=== PATIENT | female | born 1990 | race Caucasian/White ===

== ENCOUNTER 2019-03-17 23:29 | Inpatient (IN) | payer BC ==
[2019-03-18] MEDS: LACTATED RINGERS 1,000 ML IV SCH ×4 (00:02→03:06)
[2019-03-18] MEDS ORDERED: TERBUTALINE 1 MG/ML VIAL SQ PRN (01:44)
[2019-03-18] MEDS ORDERED: METHYLERGONOVINE 0.2 MG/ML 1 ML AMP IM PRN (01:44)
[2019-03-18] MEDS ORDERED: OXYTOCIN 10 UNIT/ML 1 ML VIAL IM PRN (01:44)
[2019-03-18] MEDS ORDERED: CARBOPROST TROMETHAMINE 250 MCG/ML 1 ML AMP IM PRN (01:44)
[2019-03-18] MEDS ORDERED: LIDOCAINE 0.5% (PF) 5 MG/ML (50 ML SDV) SQ PRN (01:44)
[2019-03-18 01:51] VITALS: BMI 30.4
[2019-03-18 02:19] LABS: Basophils % (A) 0 %; Eosinophils # (A) 0.1 k/uL (0-0.7); Eosinophils % (A) 1 %; HCT 39.2 % (34.0-46.0); HGB 12.8 gm/dL (11.4-16.0); Lymphocytes # (A) 1.9 k/uL (1.0-4.8); Lymphocytes % (A) 15 %; MCH 29.8 pg (25.0-35.0); MCHC 32.8 g/dL (31.0-37.0); Mean Platelet Volume 9.1; Monocytes # (A) 0.7 k/uL (0-1.0); Monocytes % (A) 5 %; Neutrophils # (A) 9.7 k/uL (1.3-7.7); Neutrophils % (A) 78 %; Platelet Count 157 k/uL (150-450); RBC 4.31 m/uL (3.80-5.40); RDW 13.1 % (11.5-15.5); WBC 12.5 k/uL (3.8-10.6)
[2019-03-18] MEDS ORDERED: SODIUM CHLORIDE 0.9% 100 ML BAG ONE (02:31)
[2019-03-18] MEDS ORDERED: ROPIVACAINE 5MG/ML 20ML VIAL ONE (02:31)
[2019-03-18] MEDS ORDERED: fentaNYL (PF) 50 MCG/ML 5 ML AMP ONE (02:31)
--- NOTE | 2019-03-18 05:25 | P.HPOB ---
History of Present Illness H&P Date: 03/18/19 Chief Complaint: Contractions This is a 28-year-old 1 para 0 woman with an estimated due date of 03/25/2019 based on LMP consistent with second trimester ultrasound. She presents at 39-0/7 weeks' gestation with regular painful contractions. She denies leakage of fluids or vaginal bleeding. She has had an uncomplicated . Upon initial evaluation in labor and delivery triage she is 3 cm dilated and does progress during observation time to 4 cm dilated in the setting of regular painful contractions. She is therefore admitted. Laboratory data: Blood type O positive, antibody screen negative, rubella immune, VDRL nonreactive, hepatitis B surface antigen negative, gonorrhea and clinic cultures negative, HIV negative, glucose tolerance testing within normal limits, group B strep negative. Review of Systems All systems: negative Past Medical History Past Medical History: No Reported History History of Any Multi-Drug Resistant Organisms: None Reported Past Surgical History: No Surgical Hx Reported Past Anesthesia/Blood Transfusion Reactions: No Reported Reaction Smoking Status: Never smoker - Past Family History Father Family Medical History: No Reported History Medications and Allergies Home Medications Medication Instructions Recorded Confirmed Type Pnv No.95/Ferrous Fum/Folic AC 1 each PO DAILY 03/17/19 03/17/19 History [ Multivitamin Tablet] Allergies Allergy/AdvReac Type Severity Reaction Status Date / Time No Known Allergies Allergy Verified 03/17/19 23:55 Exam Intake and Output 03/17/19 03/17/19 03/18/19 14:59 22:59 06:59 Other: Weight 98.883 kg Upon my initial evaluation patient is resting comfortably in bed with a epidural anesthetic. heart tones are category 1 by external monitoring. She is sonny every 2-4 minutes spontaneously. On pelvic examination the cervix is completely dilated with the vertex in the 0 station. Results Result Diagrams: 03/18/19 01:45 Abnormal Lab Results - Last 24 Hours (Table) 03/18/19 Range/Units 01:45 WBC 12.5 H (3.8-10.6) k/uL Neutrophils # 9.7 H (1.3-7.7) k/uL Assessment and Plan (1) 39 weeks gestation of Current Visit: Yes Status: Acute Code(s): Z3A.39 - 39 WEEKS GESTATION OF SNOMED Code(s): 12442566 (2) Spontaneous onset of labor Current Visit: Yes Status: Acute Code(s): XOG5018 - SNOMED Code(s): 40391032 Plan: 28-year-old 1 para 0 woman at 39 weeks gestation in spontaneous active labor. status currently reassuring. She is group B strep negative and Rh+. Anticipate normal spontaneous vaginal delivery.
[2019-03-18] MEDS ORDERED: BENZOCAINE/MENTHOL SPRAY 1 GM/SPRAY AEROSOL TOPICAL PRN (07:09)
[2019-03-18] MEDS ORDERED: HYDROcodone/APAP 5-325MG 1 EACH TAB PO PRN (07:09)
[2019-03-18] MEDS ORDERED: ZOLPIDEM 5 MG TAB PO PRN (07:09)
[2019-03-18] MEDS ORDERED: LANOLIN CREAM 5 GM TUBE TOPICAL PRN (07:09)
[2019-03-18] MEDS ORDERED: diphenhydrAMINE 50 MG/ML 1 ML VIAL IVP PRN ×2 (07:09)
[2019-03-18] MEDS ORDERED: SIMETHICONE 80 MG CHEWABLE PO PRN (07:09)
[2019-03-18] MEDS ORDERED: diphenhydrAMINE 25 MG CAP PO PRN (07:09)
[2019-03-18] MEDS ORDERED: WITCH HAZEL 1 EACH MED..PAD TOPICAL PRN (07:09)
[2019-03-18] MEDS ORDERED: HYDROCORTISONE 2.5% RECTAL CREAM 30 GM TUBE RECTAL PRN (07:09)
[2019-03-18] MEDS ORDERED: ACETAMINOPHEN TAB 325 MG TAB PO PRN (07:09)
[2019-03-18] MEDS ORDERED: diphenhydrAMINE 50 MG CAP PO PRN (07:09)
--- NOTE | 2019-03-18 07:09 | P.PROBDLV ---
Vaginal Delivery Note - . Vaginal Delivery Note: Findings: Female in the vertex right occiput anterior position with nuchal cord 1. Apgars of 8 at 1 minute and 9 at 5 minutes, weight 7 lbs. 2 oz., 3225 g. Bilateral deep sulcus tears with right labial and vulvar shearing laceration, second degree perineal laceration. large vaginal and perirectal venous sinuses noted. EBL 500 mL's. Delivery summary: This is a 28-year-old 1 woman who came in in spontaneous labor at 39-0/7 weeks gestation. On admission she was 4 cm dilated and did receive an epidural anesthetic. She had stable heart tones throughout the first stage of labor. She had spontaneous rupture of membranes with clear fluid noted. She reached complete cervical dilation after approximately six-hour first stage of labor. She had a dense epidural however was able to push effectively. She did push to at which time the RN noted more than the usual amount of spontaneous bright red vaginal bleeding. The patient had strong urge to push and was repositioned, prepped and draped in the dorsal modified Kee position. With maternal effort 2 the head on delivered from the right occiput anterior position. Nuchal cord 1 was reduced. The anterior followed by the posterior shoulders were delivered without diffi culty and the rest of the infant was delivered onto the field. The nose and mouth were bulb suctioned and the was placed on the maternal abdomen. Eventually the cord was clamped and cut and cord blood sample was taken. Apgars were 8 at 1 minute and 9 at 5 minutes and weight was 7 lbs. 2 oz. Inspection of the perineum revealed a large, deep and irregular obstetrical laceration extending into the right and left sulcus, involving the right labia and vulvar with essentially shearing away of the right labia and vulva laterally. Rectal examination revealed intact anus and capsule. There Were Large Rectal and Vaginal Varicosities Appreciated in the Entire Area. Very Careful Repair to Avoid These Large Blood Vessels Was Undertaken. The Sulcal Tears Initially Were Repaired. The Right Labia and Vulva Were Reapproximated with the Best Attempt at Cosmetic Acceptability. The Second-Degree Perineal Laceration Then Was Repaired. The vagina was thoroughly inspected as was the cervix, with the small amounts of oozing noted from all laceration repair sites. There was no heavy active bleeding noted. Rectal exam was performed with no defect or suture material palpable. No obvious development of hematoma is noted. In the midst of the repair an intact, three-vessel cord placenta was spontaneously delivered. The uterus was massaged and the patient received Pitocin. The uterus was firm and at the level of the umbilicus. Extent of the obstetrical laceration and difficult repair was reviewed with the patient and her in detail. This was a relatively controlled and u ncomplicated second stage of labor with no evidence of a compound presentation or macrosomia to explain the degree of laceration. Although she had no anal or urethral involvement there may be some consideration in the future regarding route of delivery in light of this unusual laceration. She was counseled that in several weeks once healing is complete and swelling has decreased the early better indication of cosmetic result and can be addressed at that time if necessary.
[2019-03-18] MEDS ORDERED: OXYTOCIN 20 UNITS/1000 ML NS 1,000 ML IV SCH (07:15)
[2019-03-18] MEDS: SENNOSIDES-DOCUSATE SODIUM 1 EACH TAB PO SCH ×2 (07:23→19:40)
[2019-03-18] MEDS: IBUPROFEN 600 MG TAB PO PRN ×2 (07:23→19:40)
[2019-03-19 06:13] LABS: Basophils # (A) 0.1 k/uL (0-0.2); Basophils % (A) 0 %; Eosinophils # (A) 0.1 k/uL (0-0.7); Eosinophils % (A) 1 %; HCT 36.3 % (34.0-46.0); HGB 11.8 gm/dL (11.4-16.0); Lymphocytes # (A) 2.3 k/uL (1.0-4.8); Lymphocytes % (A) 16 %; MCH 30.3 pg (25.0-35.0); MCHC 32.7 g/dL (31.0-37.0); MCV 92.7 fL (80.0-100.0); Mean Platelet Volume 8.5; Monocytes # (A) 0.6 k/uL (0-1.0); Monocytes % (A) 4 %; Neutrophils % (A) 77 %; Platelet Count 146 k/uL (150-450); RBC 3.91 m/uL (3.80-5.40); RDW 13.2 % (11.5-15.5); WBC 14.3 k/uL (3.8-10.6)
[2019-03-19] MEDS: LACTATED RINGERS 1,000 ML IV SCH (06:39)
[2019-03-19] MEDS: SENNOSIDES-DOCUSATE SODIUM 1 EACH TAB PO SCH (08:19)
[2019-03-19] MEDS: IBUPROFEN 600 MG TAB PO PRN (08:19)
[2019-03-19 08:52] VITALS: BP 119/66; PULSE 80; RESP 18; TEMP 98.2
--- NOTE | 2019-03-19 09:23 | P.DS ---
Providers Date of admission: 03/18/19 01:46 Expected date of discharge: 03/19/19 Attending physician: Maegan Neumann Primary care physician: Stated None Hospital Course: This is a 28-year-old white female 1 para 0 at 39 weeks gestation. Patient presented in active spontaneous labor. Her was remarkable for blood type O positive, rubella status immune, group B strep cultures negative. Please see dictated history and physical for details. Epidural was placed per her request. She went on to deliver vaginally a liveborn female infant with scores of 8 and 9 at one and 5 minutes respectively. Infant weighed 3225 g or 7 lbs. 2 oz. At the time of delivery were bilateral sulcus tears noted, somewhat deep and extensive on the right perineal sidewall. These were repaired with 3-0 Vicryl for good approximation. Estimated blood loss recorded at 500 mL's. Please see dictated delivery note for details. This morning the patient and her baby are both doing very well. The patient is voiding, ambulating, passing flatus without difficulty. There is minimal vaginal bleeding. The perineal body appears somewhat edematous, otherwise well approximated with no active bleeding. Fundus is firm and in the midline, symmetric and 18 week size. Breast-feeding is going well. Patient's vital signs the been stable and she has been afebrile. The has been cleared for discharge. Patient will follow-up with me in the office in 6 weeks. I have reminded her no intercourse, tampons or douching. She will use [id number] Advil or Aleve, or ibuprofen as needed for pain. I've asked her to call me with any fevers shakes or chills, foul smelling or copious lochia, with the passage of large blood clots, with any pain not alleviated by [id number] products, or indeed with any concerns. will follow-up with order control clerk blood bank as per recommendations. Patient Condition at Discharge: Good Plan - Discharge Summary Discharge Rx Participant: No New Discharge Prescriptions: No Action Pnv No.95/Ferrous Fum/Folic AC [ Multivitamin Tablet] 1 each PO DAILY Discharge Medication List Pnv No.95/Ferrous Fum/Folic AC [ Multivitamin Tablet] 1 each PO DAILY 03/17/19 [History] Discharge Disposition: HOME SELF-CARE
== END 2019-03-19 11:25 | disposition home or self-care (01) | DRG 806 ==
LOC: FBPOP 23:29 → 4FBP 03-18 01:46
PROVIDERS: ADMIT Obstetrics & Gynecology; ATTEND Obstetrics & Gynecology
PROC: 10E0XZZ Delivery of Products of Conception, External Approach (ICD-10-PCS; principal; 2019-03-18)
PROC: 0KQM0ZZ Repair Perineum Muscle, Open Approach (ICD-10-PCS; 2019-03-18)
PROC: 00HU33Z Insertion of Infusion Device into Spinal Canal, Percutaneous Approach (ICD-10-PCS; 2019-03-18)
PROC: 3E0R3BZ Introduction of Anesthetic Agent into Spinal Canal, Percutaneous Approach (ICD-10-PCS; 2019-03-18)
DX: O69.81X0 Labor and delivery complicated by cord around neck, without compression, not applicable or unspecified (principal); O87.2 Hemorrhoids in the puerperium; Z37.0 Single live birth; O87.4 Varicose veins of lower extremity in the puerperium; O70.1 Second degree perineal laceration during delivery; Z3A.39 39 weeks gestation of pregnancy
CPT/HCPCS: 85025; 86850; 86900; 86901; 96360; 99213

== ENCOUNTER → 2020-12-04 | Outpatient (CLI) | payer BC ==
[2020-12-04 11:45] LABS: Basophils % (A) 1 %; Eosinophils # (A) 0.1 k/uL (0-0.7); Eosinophils % (A) 1 %; HCT 39.8 % (34.0-46.0); HGB 14.3 gm/dL (11.4-16.0); Lymphocytes # (A) 1.3 k/uL (1.0-4.8); Lymphocytes % (A) 21 %; MCH 32.2 pg (25.0-35.0); MCV 89.4 fL (80.0-100.0); Mean Platelet Volume 8.7; Monocytes # (A) 0.3 k/uL (0-1.0); Monocytes % (A) 5 %; Neutrophils # (A) 4.5 k/uL (1.3-7.7); Neutrophils % (A) 71 %; Platelet Count 153 k/uL (150-450); RBC 4.45 m/uL (3.80-5.40); RDW 11.9 % (11.5-15.5); WBC 6.3 k/uL (3.8-10.6)
== END | disposition home or self-care (01) ==
LOC: LABPAT 10:39
PROVIDERS: ATTEND Obstetrics & Gynecology
DX: Z01.818 Encounter for other preprocedural examination (principal); O02.1 Missed abortion; Z3A.00 Weeks of gestation of pregnancy not specified
CPT/HCPCS: 36415; 85025

== ENCOUNTER 2020-12-05 05:56 | Day surgery (SDC) | payer BC ==
[2020-12-02 15:45] VITALS: BMI 25.7
[~2020-12-05 05:56] MED LIST: LACTATED RINGERS 1,000 ML IV SCH; LIDOCAINE 1% (10MG/ML) FOR IV START INTRADERMA PRN; Pre Op ABX Message 1 EACH MISC MISCELLANE ONE
[2020-12-05] MEDS ORDERED: ONDANSETRON 4 MG/2 ML VIAL ONE (06:08)
[2020-12-05] MEDS ORDERED: DEXAMETHASONE SOD PHOSPHATE 4 MG/ML 1 ML VIAL IVP ONE (06:40)
[2020-12-05] MEDS ORDERED: fentaNYL (PF) 50 MCG/ML 2 ML AMP IV PRN (07:00)
[2020-12-05] MEDS ORDERED: HYDROmorphone 0.5 MG/0.5 ML SYRINGE IVP PRN (07:00)
[2020-12-05] MEDS ORDERED: METOCLOPRAMIDE 5 MG/ML 2 ML VIAL IVP PRN (07:00)
[2020-12-05 07:32] VITALS: TEMP 98.6
[2020-12-05 07:37] VITALS: RESP 16
--- NOTE | 2020-12-05 07:45 | P.OP ---
Date of Procedure: 12/05/20 Preoperative Diagnosis: Missed AB at 8 weeks gestation, Rh+ Postoperative Diagnosis: Same Procedure(s) Performed: Suction dilatation and curettage of the uterus Anesthesia: MATRHA Surgeon: Maegan Neumann Estimated Blood Loss (ml): 50 IV fluids (ml): 200 Urine output (ml): 100 Pathology: other (Intrauterine curettings) Condition: stable Disposition: PACU Description of Procedure: Patient is brought to the operating suite where general anesthetic is administered without difficulty. She's placed in the dorsal lithotomy position. The appropriate timeout is performed to assure proper patient and procedural identification. The cervix, vagina, and perineal bodies are all prepped and draped in usual sterile fashion. Examination under anesthesia reveals an anteverted uterus that is 8-10 week size. Anterior lip of the cervix is grasped with a double-tooth tenaculum and the uterus sounds to a depth of 11 cm. The cervix is gently and systematically dilated using Hanks dilators. A #8 curved sterile curet is then placed to the dome of the fundus and under appropriate suction pressures the uterine cavity is curettaged. When complete, a medium sharp curette is used to assure that no retained products of conception are present. Uterus is firm upon completion of procedure. There is minimal bleeding. Total estimated blood loss 50 mL's. All sponge needle and enhancement counts are correct at the end the procedure. Patient is brought to the recovery room in very good condition with stable vital signs including blood pressure 102/58, pulse 62, 98% O2 saturation. Patient will follow-up with me in the office in 2 weeks. Toradol is given prior to leaving the operating room.
[2020-12-05 08:39] VITALS: BP 121/70; PULSE 55
== END 2020-12-05 08:57 | disposition home or self-care (01) ==
LOC: OR 05:56
PROVIDERS: ATTEND Obstetrics & Gynecology
DX: O02.1 Missed abortion (principal); O34.591 Maternal care for other abnormalities of gravid uterus, first trimester; Z67.90 Unspecified blood type, Rh positive
CPT/HCPCS: 88305; 59820; J1100; J2405; 86850; 86900; 86901

== ENCOUNTER 2021-10-07 05:48 | Inpatient (IN) | payer BC ==
[2021-10-07] MEDS ORDERED: TERBUTALINE 1 MG/ML VIAL SQ PRN (06:01)
[2021-10-07] MEDS ORDERED: METHYLERGONOVINE 0.2 MG/ML 1 ML AMP IM PRN (06:01)
[2021-10-07] MEDS ORDERED: LIDOCAINE 1% (PF) 10 MG/ML (30 ML SDV) SQ PRN (06:01)
[2021-10-07] MEDS ORDERED: CARBOPROST TROMETHAMINE 250 MCG/ML 1 ML AMP IM PRN (06:01)
[2021-10-07] MEDS ORDERED: OXYTOCIN 10 UNIT/ML 1 ML VIAL IM PRN (06:01)
[2021-10-07] MEDS: LACTATED RINGERS 1,000 ML IV SCH ×2 (06:07→08:07)
[2021-10-07] MEDS ORDERED: OXYTOCIN 30 UNITS/500 ML NS 30 UNIT in SALINE 1 500ML.BAG IV SCH (06:15)
[2021-10-07 06:23] LABS: Basophils % (A) 0 %; Eosinophils # (A) 0.1 k/uL (0-0.7); Eosinophils % (A) 1 %; HCT 41.1 % (34.0-46.0); HGB 13.6 gm/dL (11.4-16.0); Lymphocytes # (A) 1.8 k/uL (1.0-4.8); Lymphocytes % (A) 15 %; MCV 93.9 fL (80.0-100.0); Mean Platelet Volume 9.2; Monocytes # (A) 0.5 k/uL (0-1.0); Monocytes % (A) 5 %; Neutrophils # (A) 9.1 k/uL (1.3-7.7); Neutrophils % (A) 78 %; Platelet Count 166 k/uL (150-450); RBC 4.37 m/uL (3.80-5.40); RDW 13.3 % (11.5-15.5); WBC 11.8 k/uL (3.8-10.6)
--- NOTE | 2021-10-07 07:15 | P.HPOB ---
History of Present Illness H&P Date: 10/07/21 Chief Complaint: Here for induction of labor with advanced cervical dilation This is a 30-year-old white female 3 para 1011 EDC 10/08/2021 at 39-6/7 weeks' gestation who presents for induction with advanced cervical dilatation, irregular uterine contractions. Fetus is been active throughout the . She denies vaginal bleeding or fluid leakage. Past medical history is essentially negative. Past surgical history D&C 2020 for missed AB. Current medications vitamins daily, baby aspirin daily. ALLERGIES none known. Family history significant for diabetes, macular degeneration, myocardial infarction. Reproductive history normal spontaneous vaginal delivery 2019 liveborn female infant. Social history patient is , she is a teacher, she has never smoked tobacco and denies alcohol or drug use. Obstetric history is significant for blood type O+, rubella status immune. VDRL testing, hepatitis B surface antigen, urine culture, HIV testing, group B strep cultures, gonorrhea and chlamydia cultures all negative. One-hour Glucola 90. On exam patient is 5 foot 11 inches, 230 pounds, blood pressure 134/77, vital signs are stable and she is afebrile. The general physical exam is within normal limits, chest is clear. Extremities are negative for edema. Cervix is 6-7 cm dilated, 70-80% effaced, -1 station, vertex presentation. Artificial amniorrhexis reveals clear fluid. heart rate is consistent with reactive NST. Uterine contractions are occurring mild to moderate intensity. Impression: 39-6/7 weeks intrauterine , here for induction of labor, in early active phase. All signs reassuring. Plan: Continue close maternal and surveillance. Analgesic options are reviewed, epidural is being requested. Oxytocin as needed. Anticipate normal spontaneous vaginal delivery. Review of Systems Constitutional: Reports as per HPI Past Medical History Past Medical History: No Reported History Additional Past Medical History / Comment(s): miscarriage History of Any Multi-Drug Resistant Organisms: None Reported Past Surgical History: No Surgical Hx Reported Additional Past Surgical History / Comment(s): wisdom teeth removed and d&c Past Anesthesia/Blood Transfusion Reactions: No Reported Reaction Past Psychological History: No Psychological Hx Reported Smoking Status: Never smoker Past Alcohol Use History: None Reported Additional Past Alcohol Use History / Comment(s): not during pregnancies Past Drug Use History: None Reported - Past Family History Father Family Medical History: No Reported History Medications and Allergies Home Medications Medication Instructions Recorded Confirmed Type Pnv No.95/Ferrous Fum/Folic AC 1 each PO DAILY 03/17/19 10/07/21 History [ Multivitamin Tablet] Allergies Allergy/AdvReac Type Severity Reaction Status Date / Time No Known Allergies Allergy Verified 10/07/21 06:00 Exam Vital Signs Temp Pulse Resp BP Pulse Ox 10/07/21 06:03 97.1 F L 85 16 134/77 98 Intake and Output 10/06/21 10/07/21 10/07/21 22:59 06:59 14:59 Other: # Voids 1 Weight 104.326 kg see dictation under HPI please Results Result Diagrams: 10/07/21 06:07 Abnormal Lab Results - Last 24 Hours (Table) 10/07/21 Range/Units 06:07 WBC 11.8 H (3.8-10.6) k/uL Neutrophils # 9.1 H (1.3-7.7) k/uL Assessment and Plan Assessment: Scheduled for induction with advanced maternal cervical dilation, in early labor. Plan: close maternal and surveillance. Analgesic options reviewed. Anticipate normal spontaneous vaginal delivery. Time with Patient: Less than 30
[2021-10-07] MEDS ORDERED: ROPIVACAINE 100 MG, fentaNYL (PF). 200 MCG in SODIUM CHLORIDE 0.9% 76 ML EPIDURAL ONE (07:56)
[2021-10-07] MEDS ORDERED: diphenhydrAMINE 25 MG CAP PO PRN (09:25)
[2021-10-07] MEDS ORDERED: LANOLIN CREAM 5 GM TUBE TOPICAL PRN (09:25)
[2021-10-07] MEDS ORDERED: diphenhydrAMINE 50 MG/ML 1 ML VIAL IVP PRN ×2 (09:25)
[2021-10-07] MEDS ORDERED: BENZOCAINE/MENTHOL SPRAY 1 GM/SPRAY AEROSOL TOPICAL PRN (09:25)
[2021-10-07] MEDS ORDERED: HYDROCORTISONE 2.5% RECTAL CREAM 30 GM TUBE RECTAL PRN (09:25)
[2021-10-07] MEDS ORDERED: ZOLPIDEM 5 MG TAB PO PRN (09:25)
[2021-10-07] MEDS ORDERED: SIMETHICONE 80 MG CHEWABLE PO PRN (09:25)
[2021-10-07] MEDS ORDERED: diphenhydrAMINE 50 MG CAP PO PRN (09:25)
--- NOTE | 2021-10-07 09:25 | P.PROBDLV ---
Vaginal Delivery Note - . Vaginal Delivery Note: This is a 30-year-old white female 3 para 1011 EDC 10/08/2021 at 39-6/7 weeks' gestation who was scheduled for induction but presented with advanced cervical dilatation this morning, likely in early spontaneous labor. Group B strep cultures negative, blood type O positive, rubella status immune. Please see dictated history and physical for details. Artificial amniorrhexis revealed clear fluid. Epidural was placed per her request. At all times heart tones were reassuring. She became completely dilated at 0309 hrs. and the perineal body was prepped and draped in usual sterile fashion. With excellent maternal expulsive efforts infant's head del ivered occiput anterior and restituted accordingly. There was no nuchal cord noted. The left or anterior shoulder was gently delivered from underneath the pubic symphysis at which time the oropharynx, nasopharynx, and external nares were bulb suctioned thoroughly on the perineal body. Patient was officially delivered of a liveborn female infant at 0906 hrs. Umbilical cord was doubly clamped and ligated, she was handed to waiting nurses for evaluation where scores of 9 and 9 at one and 5 minutes respectively were given. Cord blood was sent to the lab for O+ blood type. Placenta delivered spontaneously, it was inspected and noted to be intact with trivascular cord at 0910 hours. Uterus is then massaged. Careful inspection of the cervix, vagina, perineum, periurethral, and perirectal areas revealed a small second-degree midline perineal laceration. This is repaired in the usual fashion using Monocryl suture. Excellent reapproximation was noted. Fundus is firm and in the midline, symmetric and 18 week size upon completion of delivery. Total estimated blood loss 200 mL's. Infant weighs 7 lbs. 5 oz. or 3315 g. Patient and her are allowed to begin the bonding experience in the LDR.
[2021-10-07] MEDS ORDERED: IBUPROFEN 600 MG TAB PO PRN (10:44)
[2021-10-07 16:30] VITALS: RESP 16
[2021-10-07] MEDS: ACETAMINOPHEN TAB 325 MG TAB PO PRN (19:42)
[2021-10-07] MEDS: SENNOSIDES-DOCUSATE SODIUM 1 EACH TAB PO SCH (19:42)
[2021-10-07] MEDS: IBUPROFEN 600 MG TAB PO PRN (22:06)
[2021-10-08] MEDS: ACETAMINOPHEN TAB 325 MG TAB PO PRN ×2 (02:34→07:55)
[2021-10-08] MEDS: IBUPROFEN 600 MG TAB PO PRN (04:33)
[2021-10-08 07:52] LABS: Basophils # (A) 0.1 k/uL (0-0.2); Basophils % (A) 1 %; Eosinophils # (A) 0.1 k/uL (0-0.7); Eosinophils % (A) 1 %; HCT 37.2 % (34.0-46.0); HGB 12.3 gm/dL (11.4-16.0); Lymphocytes # (A) 1.6 k/uL (1.0-4.8); Lymphocytes % (A) 16 %; MCH 31.7 pg (25.0-35.0); MCV 96.1 fL (80.0-100.0); Mean Platelet Volume 9.6; Monocytes # (A) 0.4 k/uL (0-1.0); Monocytes % (A) 4 %; Neutrophils # (A) 7.9 k/uL (1.3-7.7); Neutrophils % (A) 78 %; Platelet Count 149 k/uL (150-450); RBC 3.86 m/uL (3.80-5.40); RDW 13.4 % (11.5-15.5); WBC 10.2 k/uL (3.8-10.6)
--- NOTE | 2021-10-08 07:54 | P.DS ---
Providers Date of admission: 10/07/21 05:48 Expected date of discharge: 10/08/21 Attending physician: Maegan Neumann Primary care physician: Stated None Hospital Course: This is a 30-year-old female 3 para 1011 EDC 10/08/2021 at 39-6/7 weeks' gestation who presented with advanced cervical dilatation for induction of labor, but was actually in early spontaneous labor. unremarkable, group B strep cultures negative, blood type O+, rubella status immune. Please see my dictated history and physical for details. Artificial amniorrhexis revealed clear fluid. Epidural was placed per her request. She went on to swiftly deliver vaginally a liveborn female infant with scores of 9 and 9 at one and 5 minutes respectively. weighed 3315 g or 7 lbs. 5 oz. Estimated blood loss 200 mL's. Small second-degree perineal laceration easily repaired. Please see my dictated delivery note for details. This morning the patient is doing well. She is voiding, ambulating, passing flatus without difficulty. Vital signs are stable and she is afebrile. Fundus is firm and in the midline, symmetric and 18 week size. Extremities are negative for edema. Breast-feeding is going well. Patient has no complaints and was judged to be in excellent condition for discharge home. She will follow-up with me in the office in 6 weeks. We have reviewed options for contraception and she will consider these options, to be discussed further at the 6 week visit. Patient is advised to call with any fevers shakes or chills, foul smelling or copious lochia, with the passage of large blood clots, with any pain not alleviated by [id number] products, or indeed with any concerns. [place] infant will follow-up with client technical support associate as per recommendations. Assessment: Doing well day #1 Patient Condition at Discharge: Good Plan - Discharge Summary Discharge Rx Participant: No New Discharge Prescriptions: No Action Pnv No.95/Ferrous Fum/Folic AC [ Multivitamin Tablet] 1 each PO DAILY Discharge Medication List Pnv No.95/Ferrous Fum/Folic AC [ Multivitamin Tablet] 1 each PO DAILY 03/17/19 [History] Follow up Appointment(s)/Referral(s): Maegan Neumann MD [STAFF PHYSICIAN] - 6 Weeks Discharge Disposition: HOME SELF-CARE
[2021-10-08] MEDS: SENNOSIDES-DOCUSATE SODIUM 1 EACH TAB PO SCH (07:55)
[2021-10-08 08:25] VITALS: BP 129/73; PULSE 74; TEMP 98.1
== END 2021-10-08 10:45 | disposition home or self-care (01) | DRG 807 ==
LOC: 4FBP 05:48
PROVIDERS: ADMIT Obstetrics & Gynecology; ATTEND Obstetrics & Gynecology
PROC: 10E0XZZ Delivery of Products of Conception, External Approach (ICD-10-PCS; principal; 2021-10-07)
PROC: 0KQM0ZZ Repair Perineum Muscle, Open Approach (ICD-10-PCS; 2021-10-07)
PROC: 3E033VJ Introduction of Other Hormone into Peripheral Vein, Percutaneous Approach (ICD-10-PCS; 2021-10-07)
PROC: 10907ZC Drainage of Amniotic Fluid, Therapeutic from Products of Conception, Via Natural or Artificial Opening (ICD-10-PCS; 2021-10-07)
PROC: 4A0HXCZ Measurement of Products of Conception, Cardiac Rate, External Approach (ICD-10-PCS; 2021-10-07)
DX: O70.1 Second degree perineal laceration during delivery (principal); Z37.0 Single live birth; Z3A.39 39 weeks gestation of pregnancy; Z79.82 Long term (current) use of aspirin
CPT/HCPCS: 85025; 86850; 86900; 86901